=== PATIENT | male | born 1980 | race African-American/Black ===

== ENCOUNTER 2016-09-12 10:43 | Emergency (ER) | payer OTHER ==
[~2016-09-12] VITALS: Ht 182.9 cm; Wt 70.0 kg
[~2016-09-12 10:43] MED LIST: PROM25TA5 PO; ZOFR4TAB3 SL
[2016-09-12 10:46] VITALS: BP 130/88; PULSE 101; RESP 15; TEMP 98.2; O2SAT 98
[2016-09-12] MEDS ORDERED: SODIUM CHLOR 0.9% 1000 ML INJ 1,000 ML IV SCH (12:24)
[2016-09-12 12:27] VITALS: O2SAT 97
--- NOTE | 2016-09-12 12:27 | RADRPT ---
EXAM DATE/TIME: 09/12/2016 11:53 [facility] COMPARISON: No previous studies available for comparison. INDICATIONS : Right hand pain, fifth digit. MEDICAL HISTORY : Smoker. SURGICAL HISTORY : None. ENCOUNTER: Initial ACUITY: 1 day PAIN SCORE: 10/10 LOCATION: Right hand, fifth digit. FINDINGS: There is mild soft tissue swelling surrounding the right 5th proximal interphalangeal joint. There i s a questionable nondisplaced subtle fracture involving base of the right 5th middle phalanx. CONCLUSION: 1. Soft tissue swelling surrounding the right 5th proximal interphalangeal joint with questionable n ondisplaced fracture involving base of the right 5th middle phalanx. Jeison Ball MD on September 12, 2016 at 12:18 Board Certified Radiologist. This report was verified electronically.
[2016-09-12] MEDS ORDERED: ONDANSETRON HCL 4 MG/2 ML VIAL IVP ONE (12:30)
[2016-09-12] MEDS ORDERED: SODIUM CHLORIDE 0.9% FLUSH 10 ML FLUSH IV FLUSH PRN (12:30)
[2016-09-12 13:01] LABS: AUTOMATED NEUTROPHIL # 8.4 TH/MM3 (1.8-7.7); BASOPHIL # 0.1 TH/MM3 (0-0.2); EOSINOPHIL # 0.1 TH/MM3 (0-0.4); HEMATOCRIT 44.9 % (39.0-51.0); HEMO FLAGS DIFF FINAL; LYMPHOCYTE # 4.4 TH/MM3 (1.0-4.8); MEAN CELL VOLUME 85.5 FL (80.0-100.0); MEAN CORPUSCULAR HEMOGLOBIN 29.4 PG (27.0-34.0); MEAN CORPUSCULAR HGB CONC 34.4 % (32.0-36.0); MONO % 7.7 % (0.0-8.0); NEUT % 59.3 % (16.0-70.0); PLATELET COUNT 277 TH/MM3 (150-450); RED BLOOD COUNT 5.25 MIL/MM3 (4.50-5.90); RED CELL DISTRIBUTION WIDTH 14.7 % (11.6-17.2); WHITE BLOOD COUNT 14.1 TH/MM3 (4.0-11.0)
--- NOTE | 2016-09-12 13:04 | RADRPT ---
EXAM DATE/TIME: 09/12/2016 11:51 [facility] COMPARISON: No previous studies available for comparison. INDICATIONS : Cough, nausea, vomiting, chest pain. MEDICAL HISTORY : Smoker. SURGICAL HISTORY : None. ENCOUNTER: Initial ACUITY: 1 day PAIN SCORE: 2/10 LOCATION: chest midline. FINDINGS: PA and lateral views of the chest demonstrate the lungs to be symmetrically aerated without evidence of mass, infiltrate or effusion. The cardiomediastinal contours are unremarkable. Osseous structure s are intact. CONCLUSION: No acute cardiopulmonary process. Alejandro Dugan MD on September 12, 2016 at 13:02 Board Certified Radiologist. This report was verified electronically.
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
[2016-09-12 13:40] LABS: ALT (GPT) 38 U/L (12-78); ANION GAP 7 MEQ/L (5-15); AST (GOT) 37 U/L (15-37); BICARBONATE 27.9 MEQ/L (21.0-32.0); BLOOD UREA NITROGEN 27 MG/DL (7-18); CHLORIDE 101 MEQ/L (98-107); GLOMERULAR FILTRATION RATE 65 ML/MIN (>89); POTASSIUM 3.8 MEQ/L (3.5-5.1); SODIUM (NA) 136 MEQ/L (136-145)
[2016-09-12 13:42] LABS: ALKALINE PHOSPHATASE 91 U/L (45-117); TOTAL BILIRUBIN ADULT 0.4 MG/DL (0.2-1.0)
[2016-09-12] MEDS ORDERED: SODIUM CHLOR 0.9% 1000 ML INJ 1,000 ML IV ONE (14:00)
[2016-09-12] MEDS ORDERED: ZOFR4TAB3 SL (14:05)
== END 2016-09-12 16:02 | disposition home or self-care (01) ==
LOC: NEPD 10:43
DX: S62.656A Nondisplaced fracture of middle phalanx of right little finger, initial encounter for closed fracture (principal); R11.2 Nausea with vomiting, unspecified; M79.1 Myalgia; K21.9 Gastro-esophageal reflux disease without esophagitis; F32.9 Major depressive disorder, single episode, unspecified; F17.200 Nicotine dependence, unspecified, uncomplicated; Y04.0XXA Assault by unarmed brawl or fight, initial encounter
CPT/HCPCS: 71020; 73130; 80053; 83690; 85025; 96374; 96375; 99284; J2405; J7030

== ENCOUNTER 2017-03-08 18:23 | Emergency (ER) | payer OTHER ==
[~2017-03-08] VITALS: Ht 182.9 cm; Wt 72.5 kg
[~2017-03-08 18:23] MED LIST changes: -PROM25TA5 PO
[2017-03-08 18:24] VITALS: BP 131/79; PULSE 76; RESP 16; TEMP 98.8; O2SAT 99
[2017-03-08] MEDS ORDERED: PHAR500T3 PO (20:11)
[2017-03-08] MEDS ORDERED: LIDOCAINE HCL 1% 50 ML VIAL INFIL ONE (20:15)
[2017-03-08] MEDS ORDERED: HYDR-3516 PO (20:21)
[2017-03-08] MEDS ORDERED: PENI500T PO (20:21)
--- NOTE | 2017-03-08 20:21 | PD ---
HPI Chief Complaint: Oral / Dental Pain or Problem Time Seen by Provider: 20:10 Travel History International Travel<30 days: No Contact w/Intl Traveler<30days: No Traveled to known affect area: No History of Present Illness HPI 36-year-old male here for evaluation of left upper posterior molar pain and possible dry socket. The patient reports that 2 weeks ago he had his left upper molar removed. He was doing well up until today when he began to experience severe pain. States that the cold air outside really irritates his pain and when he smokes it hurts as well. Pain is severe, constant, worse with eating, radiates to his left ear. He is able to swallow and tolerate his secretions. No fevers or chills. Triage note reports that the patient was complaining of chest pain after taking Tylenol. He currently has no chest pain and has no history of cardiac disease. PFSH Past Medical History Depression: Yes Diminished Hearing: No Gastrointestinal Disorders: Yes (GASTRITIS) GERD: Yes Inguinal Hernia: Yes (right groin 2000) Immunizations Current: No Tetanus Vaccination: Unknown Past Surgical History Other Surgery: Yes (TESTICULAR SURG) Social History Alcohol Use: No Tobacco Use: Yes (1/2 pack) Substance Use: No Allergies-Medications (Allergen,Severity, Reaction): Coded Allergies: No Known Allergies (Unverified , 09/12/16) Reported Meds & Prescriptions Reported Meds & Active Scripts Active Reported Extra Strength Pain Relief (Acetaminophen) 500 Mg Tab 500 Mg PO Q4-6H PRN Review of Systems Except as stated in HPI: all other systems reviewed are Neg Physical Exam Narrative GENERAL: Well-developed, well-nourished, mild distress secondary to pain. SKIN: Focused skin assessment warm/dry. No rash. HEAD: Atraumatic. Normocephalic. EYES: Pupils equal and round. No scleral icterus. No injection or drainage. ENT: No nasal bleeding or discharge. Mucous membranes pink and moist. Poor dentition. Left upper tooth #15 removed with socket that appears well healing, no erythema or inflammation, no necrosis. There is no drooling or stridor. Normal phonation. Normal pharynx. Normal tympanic membranes and external auditory canals bilaterally. No trismus. NECK: Trachea midline. No JVD. CARDIOVASCULAR: Regular rate and rhythm. RESPIRATORY: No accessory muscle use. Clear to auscultation. Breath sounds equal bilaterally. MUSCULOSKELETAL: No obvious deformities. No clubbing. No cyanosis. No edema. NEUROLOGICAL: Awake and alert. No obvious cranial nerve deficits. Motor grossly within normal limits. Normal speech. PSYCHIATRIC: Appropriate mood and affect; insight and judgment normal. Data Data Last Documented VS Vital Signs Date Time Temp Pulse Resp B/P (MAP) Pulse Ox O2 Delivery O2 Flow Rate FiO2 03/08/17 18:24 98.8 76 16 131/79 (96) 99 Room Air Orders Orders Lidocaine 1% Inj (50 Ml) (Xylocaine 1% I (03/08/17 20:15) [facility] Medical Decision Making Medical Screen Exam Complete: Yes Emergency Medical Condition: Yes Differential Diagnosis Dental pain, dry socket, dental infection Narrative Course Vital signs are within normal limits. Left greater palatine nerve block was performed with significant improvement in pain. Tooth #15 is removed and the socket appears to be well-healing. No signs of necrosis. There is no drooling or stridor on exam. No trismus. Normal phonation. No facial swelling. No subcutaneous mental swelling or neck swelling. Plan is to start the patient on Pen-Vee K and have him follow-up with his dentist tomorrow. He was advised on when to return to the emergency department. He verbalizes understanding and agreement with plan. Procedures Procedure Narrative Left greater palatine nerve block: 1 cc of 1% lidocaine was injected in the area of the left greater palatine nerve. The patient experienced immediate relief of pain. No complications. Tolerated well. Diagnosis Primary Impression: Pain, dental Referrals: Dentist 1 day Additional Instructions: Follow-up with your dentist tomorrow. Return to the emergency department for worsening symptoms or any other concerns. Scripts Penicillin V Potassium (Penicillin V Potassium) 500 Mg Tab 500 MG PO Q8H for Infection for 10 Days, #30 TAB 0 Refills Prov: Robert Cervantes MD 03/08/17 Hydrocodone-Acetaminophen (Hydrocodone-Acetaminophen) 5-325 mg Tab 1 TAB PO Q6H Y for PAIN, #10 TAB 0 Refills Prov: Robert Cervantes MD 03/08/17 Disposition: 01 DISCHARGE HOME Condition: Stable Robert Cervantes MD Mar 08, 2017 20:21
[2017-03-08] MEDS ORDERED: PENICILLIN V POTASSIUM 500 MG TAB PO ONE (20:30)
[2017-03-08] MEDS ORDERED: ACETAMINOPHEN/HYDROcodone 325 MG/5 MG TAB PO ONE (20:30)
[2017-03-08] MEDS ORDERED: LIDOCAINE HCL 1% 20 ML VIAL INFIL ONE (20:30)
== END 2017-03-08 20:50 | disposition home or self-care (01) ==
LOC: NEPD 18:23
DX: K08.89 Other specified disorders of teeth and supporting structures (principal); F17.210 Nicotine dependence, cigarettes, uncomplicated
CPT/HCPCS: 64400

== ENCOUNTER 2017-07-06 15:27 | Emergency (ER) | END 2017-07-06 22:36 | disposition home or self-care (01) | DX: K52.9 Noninfective gastroenteritis and colitis, unspecified (principal); F17.200 Nicotine dependence, unspecified, uncomplicated; F12.90 Cannabis use, unspecified, uncomplicated | CPT/HCPCS: 80053; 85025; 99283; J7030 ==